=== PATIENT | male | born 1950 | race Caucasian/White ===

== ENCOUNTER 2021-07-03 13:17 | Emergency (ER) | payer MEDICARE, OTHER ==
[2021-07-03] MEDS ORDERED: Bisacodyl 10 MG Supp RECTAL ONE (13:56)
[2021-07-03] MEDS ORDERED: Polyethylene Glycol 3350 Powder 17 GM Packet PO ONE ×3 (13:57→15:09)
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
[2021-07-03] MEDS ORDERED: Magnesium Citrate Solution 296 ML Bottle PO ONE (18:31)
== END 2021-07-03 18:59 | disposition home or self-care (01) ==
LOC: JP.ED 13:17
DX: K56.41 Fecal impaction (principal); I25.2 Old myocardial infarction
CPT/HCPCS: 99283; A9270

== ENCOUNTER 2021-07-21 20:51 | Emergency (ER) | payer MEDICARE, OTHER ==
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
[2021-07-21 21:40] LABS: CORONAVIRUS COVID-19 NAA NEGATIVE (NEGATIVE)
[2021-07-21] MEDS ORDERED: Sodium Chloride 0.9% 10 ML Syringe FLUSH PRN (21:47)
[2021-07-21] MEDS ORDERED: Vancomycin 1,500 GM in Sodium Chloride 0.9% 250 ML IV ONE (21:47)
[2021-07-21] MEDS ORDERED: Sodium Chloride 0.9% 1,000 ML IV ONE (21:47)
[2021-07-21] MEDS ORDERED: Cefepime 2 GM in Sodium Chloride 0.9% 50 ML IV ONE (21:47)
[2021-07-21] MEDS ORDERED: Water For Injection, Sterile 20 ML ONE (22:09)
[2021-07-21] MEDS ORDERED: Sodium Chloride 0.9% 250 ML ONE (22:25)
[2021-07-21] MEDS ORDERED: Vancomycin 1 GM SDV ONE (22:25)
[2021-07-22] MEDS ORDERED: Vancomycin 1.5 GM in Sodium Chloride 0.9% 500 ML IV ONE (08:18)
--- NOTE | 2021-07-22 08:54 | CR ---
CHEST: Portable 07/21/2021 at 9:34 PM CLINICAL HISTORY:Hypoxia, cough COMPARISON:None FINDINGS: Left heart margin is obscured due to left lower lobe airspace disease and probable left effusion. Underlying lesion cannot be excluded. There is patchy infiltrate in the right lung base. Impression: Opacification the left lower lobe may be a combination of effusion consolidation and/or atelectasis. This should be followed until clear Right lower lobe pneumonia
== END 2021-07-21 23:54 ==
LOC: JP.ED 20:51
DX: A41.9 Sepsis, unspecified organism (principal); J18.9 Pneumonia, unspecified organism; R65.20 Severe sepsis without septic shock; J96.01 Acute respiratory failure with hypoxia; I25.2 Old myocardial infarction; Z20.822 Contact with and (suspected) exposure to COVID-19
CPT/HCPCS: 0241U; 36415; 36600; 71045; 80053; 82803; 83605; 83615; 83880; 84145; 85025; 86140; 87040; 93005; 96365; 96367; 99285; J0692; J3370; J7030; J7040; J7050